=== PATIENT | male | born 1965 | race Caucasian/White ===

== ENCOUNTER 2019-10-08 12:27 | Emergency (ER) | payer MEDICAID ==
[~2019-10-08] VITALS: Ht 172.7 cm; Wt 80.0 kg
[2019-10-08] MEDS ORDERED: LEVETIRACETAM 1000MG/100ML 100 ML IV ONE (13:30)
[2019-10-08 14:00] LABS: CHLORIDE 107 mEq/L (98-107)
[2019-10-08 14:04] LABS: ETHANOL BLOOD < 10 mg/dL
[2019-10-08 14:10] LABS: CLARITY URINE CLEAR (CLEAR); COLOR URINE YELLOW (YELLOW); KETONES URINE NEGATIVE (NEGATIVE); LEUKOCYTE ESTERASE URINE NEGATIVE (NEGATIVE); NITRITE URINE NEGATIVE (NEGATIVE); OCCULT BLOOD URINE NEGATIVE (NEGATIVE); PH URINE 6.5 (4.5-8.0); PROTEIN URINE NEGATIVE (NEGATIVE); SPECIFIC GRAVITY URINE 1.014 (1.005-1.030)
[2019-10-08 14:23] LABS: HEMATOCRIT. 33.1 % (42.0-52.0); HEMOGLOBIN. 11.5 g/dL (14.0-18.0); MEAN CORPUSCULAR HEMOGLOBIN 30.2 pg (28.0-32.0); MEAN CORPUSCULAR VOLUME 87.2 fL (80.0-94.0); MEAN PLATELET VOLUME 9.7 fl (7.4-10.4); PLATELET 112 x1000/uL (130-400); RED BLOOD CELL COUNT 3.79 mill/uL (4.7-6.1); RED CELL DISTRIBUTION WIDTH 14.3 % (11.6-14.6)
[2019-10-08 14:25] LABS: *AMPHETAMINES SCREEN URINE NEGATIVE (NEGATIVE); *BARBITURATES SCREEN URINE NEGATIVE (NEGATIVE); *BENZODIAZEPINES SCREEN URINE NEGATIVE (NEGATIVE); *COCAINE SCREEN URINE NEGATIVE (NEGATIVE); CANNABINOID URINE SCREEN NEGATIVE (NEGATIVE)
[2019-10-08 14:26] LABS: METHADONE URINE SCREEN NEGATIVE (NEGATIVE); OPIATES URINE SCREEN NEGATIVE (NEGATIVE); PHENCYCLIDINE URINE SCREEN NEGATIVE (NEGATIVE)
[2019-10-08 14:51] LABS: PLATELET ESTIMATE SLIGHTLY DECREASED
[2019-10-08 20:25] VITALS: BP 153/90
== END 2019-10-08 20:27 | disposition home or self-care (01) ==
LOC: ER 12:27
DX: R56.9 Unspecified convulsions (principal); I10 Essential (primary) hypertension
CPT/HCPCS: 36415; 70450; 80053; 80305; 80320; 81003; 85025; 93005; 96365; 99285; J1953; G0480